=== PATIENT | female | born 1975 | race Two or more races ===

== ENCOUNTER 2024-04-16 11:42 | Emergency (ER) | payer OTHER ==
[~2024-04-16] VITALS: Ht 165.1 cm; Wt 100.0 kg
[2024-04-16 13:03] VITALS: BP 153/91; PULSE 121; RESP 24; O2SAT 100
== END 2024-04-16 13:26 | disposition left against medical advice (07) ==
LOC: ER 11:42
DX: R05.9 Cough, unspecified (principal); R11.2 Nausea with vomiting, unspecified; R68.83 Chills (without fever); Z53.21 Procedure and treatment not carried out due to patient leaving prior to being seen by health care provider